=== PATIENT | female | born 1985 | race Hispanic/Latino ===

== ENCOUNTER → 2023-07-02 16:08 | Outpatient (CLI) | payer OTHER, SELFPAY ==
--- NOTE | 2023-07-02 | DI.US.S_ITS ---
PROCEDURE: US PERIPH VENOUS LOW EXTREM RT INDICATIONS: STATUS POST MASS SURGICAL REMOVAL FROM MEDIAL KNEE 2 WEEKS AGO. CALF SWELLING/PAIN TECHNIQUE: Real-time imaging, as well as color and pulse Doppler interrogation, were performed of the lower extremity deep veins from the inguinal ligament to the popliteal fossa, with documentation of the visualized calf veins. COMPARISON: None. FINDINGS: The common femoral, femoral, popliteal, and the visualized calf veins are normally compressible, and free of intraluminal thrombus. Color and pulse Doppler demonstrate normal phasic intraluminal flow. There is normal augmentation response to distal compression maneuver. There is a 18.6 x 5.9 x 2.3 cm complex fluid collection within the popliteal fossa. IMPRESSION: 1. No deep vein thrombosis of the right lower extremity. 2. Complex fluid collection within the left popliteal fossa. Differential considerations include a Oconnor's cyst or hematoma. Dictated by: Iraida Guo M.D. on 07/02/2023 at 16:50 Approved by: Iraida Guo M.D. on 07/02/2023 at 16:51
== END ==
PROVIDERS: PCP Physician Assistant; Referring Provider Student in an Organized Health Care Education/Training Program; Visit Provider Student in an Organized Health Care Education/Training Program
DX: Z98.890 Other specified postprocedural states (principal); M79.661 Pain in right lower leg; M79.89 Other specified soft tissue disorders
CPT/HCPCS: 93971